=== PATIENT | male | born 1950 | race Caucasian/White ===

== ENCOUNTER → 2018-02-22 08:29 | Outpatient (CLI) | payer OTHER, SELFPAY ==
[2018-02-22 10:49] LABS: Estimated Glomerular Filt Rate > 60.0 mL/min (>60)
== END ==
PROVIDERS: Family Provider Family Medicine; PCP Family Medicine; Visit Provider Emergency Medicine Emergency Medical Services
DX: G95.0 Syringomyelia and syringobulbia (principal)
CPT/HCPCS: 36415; 82565

== ENCOUNTER → 2018-02-25 08:50 | Outpatient (CLI) | payer OTHER, SELFPAY ==
--- NOTE | 2018-02-25 | DI.MRI.S_ITS ---
PROCEDURE: MR THORACIC SPINE WO/W CON INDICATIONS: History of cervicothoracic syrinx. Left neck,shoulder and arm pain TECHNIQUE: Noncontrast sagittal T1 spin echo and T2 fast spin echo, sagittal STIR, axial T1 and T2 fast spin echo through the thoracic spine. After the administration of contrast, axial and sagittal T1 spin echo with fat saturation through the thoracic spine. COMPARISON: [facility], MR, MR CERVICAL SPINE WO/W CON, 02/25/2018, 9:06. [facility], MR, T-SPINE W&WO CONTRAST, 10/27/2017, 9:31. FINDINGS: Image quality: Diagnostic, with note made of motion artifact. Alignment and curvature: There is normal bony alignment. Marrow: Marrow is of normal overall signal. No acute vertebral body compression fractures. End plate edema is seen anteriorly at T7-T8 and at T9-T10, as before. Spinal cord: Visualized spinal cord is of normal signal and size. There is again seen prominence of the central canal within the superior cervical spine from approximately C6 through T1-T2. No abnormal enhancement is seen to suggest a mass as the cause of the syrinx. Paraspinous soft tissues: No paravertebral masses or abnormal enhancement. Miscellaneous: At C7-T1, there is a central/left disc protrusion, as on series 14 image 62, with mild to moderate central canal narrowing and minimal mass effect upon the ventral spinal cord. At T6-T7, there is a central/left disc protrusion, as on series 14 image 36, with mild central canal narrowing and mild mass effect upon the ventral spinal cord. At T9-T10, there is mild disc bulge seen, with minimal central canal narrowing. At T10-T11, there is generalized disc bulge seen, with minimal central canal narrowing present. IMPRESSION: No abnormal enhancement can be seen to suggest a mass of the cause of the patient's cervicothoracic syrinx. Age-appropriate thoracic spine degenerative changes are noted. Dictated by: Armando Prado M.D. on 02/25/2018 at 10:23 Approved by: Armando Prado M.D. on 02/25/2018 at 10:32
--- NOTE | 2018-02-25 | DI.MRI.S_ITS ---
PROCEDURE: MR CERVICAL SPINE WO/W CON INDICATIONS: History of cervicothoracic syrinx. Left sided neck, shoulder and arm pain TECHNIQUE: Noncontrast sagittal T1 spin echo and T2 fast spin echo, sagittal STIR, foraminal oblique sagittal T2 fast spin echo, axial gradient echo or T2 fast spin echo through the cervical spine. After the administration of contrast, axial and sagittal T1 spin echo with fat saturation through the cervical spine. COMPARISON: [facility], MR, C-SPINE W&WO CONTRAST, 10/27/2017, 9:07. FINDINGS: Image quality: Excellent. Alignment and curvature: There is straightening of normal cervical curvature. There is trace retrolisthesis of C5 on C6 and C6 on C7. Marrow: Marrow is normal in overall signal, without suspicious enhancement. Reactive endplate changes are present at C5-6. Spinal cord: Visualized spinal cord demonstrates abnormal hyperintense signal from C6-7 through T1. Appearance is unchanged. No cerebellar tonsillar herniation. No abnormal intramedullary enhancement. Paraspinous soft tissues: No paravertebral masses or suspicious enhancement. Discs: Moderate to severe desiccation is present throughout the cervical spine. C2-3: Mild disc bulge with minimal canal narrowing. No foraminal narrowing. C3-4: Mild disc bulge with moderate spinal stenosis. Moderate to severe bilateral foraminal narrowing with uncovertebral hypertrophy. C4-5: Mild disc bulge with mild to moderate spinal stenosis. Mild left foraminal narrowing with uncovertebral hypertrophy. C5-6: Mild disc bulge with moderate to severe spinal stenosis. Moderate to severe bilateral foraminal narrowing with uncovertebral hypertrophy. C6-7: Mild disc bulge with severe spinal stenosis. There is moderate left and mild right foraminal narrowing with uncovertebral hypertrophy. C7-T1: Mild disc bulge with left posterior paracentral protrusion, better visualized on today's exam as prior study of motion at this level. There is mild spinal stenosis as well as no gross foraminal narrowing. IMPRESSION: 1. Unchanged appearance of hyperintensity within the lower cervical/upper thoracic cord as above. No mass lesion or abnormal enhancement is identified. As previously noted, this could be secondary to old trauma, infection, inflammation or syrinx. 2. Multilevel degenerative changes, stable compared to prior exam. Dictated by: Milana Ascencio M.D. on 02/25/2018 at 13:28 Approved by: Milana Ascencio M.D. on 02/25/2018 at 14:04
== END ==
PROVIDERS: Family Provider Family Medicine; PCP Family Medicine; Visit Provider Emergency Medicine Emergency Medical Services
DX: M54.2 Cervicalgia (principal); M25.512 Pain in left shoulder; M79.602 Pain in left arm
CPT/HCPCS: 72156; 72157; A9579

== ENCOUNTER 2019-09-20 21:33 | Emergency (ER) | payer OTHER, SELFPAY ==
[2019-09-20 21:30] VITALS: BP 131/73; PULSE 75; RESP 18; TEMP 36.2; O2SAT 99
--- NOTE | 2019-09-20 21:43 | ED.SYNCOPE ---
HPI - Syncope General Chief Complaint: Syncope Stated Complaint: Near Syncope Time Seen by Provider: 09/20/19 21:43 Source: patient Mode of arrival: Ambulatory Limitations: no limitations History of Present Illness HPI narrative: The patient was sitting at his table at home playing cards with family members. He was suddenly feeling hot and flushed. He did not feel well, he got up and walked rate from the table. He had no chest pain, perhaps mild dysthymia. He had mild nausea but no emesis. His last meal was 5:00 p.m.. He does not drink alcohol. He has no cardiac or pulmonary disease. He came back inside and laid down on the floor, he was dizzy. There was no LOC. He does not feel like he was going to pass out. Someone at the home called 911. Symptoms resolved after 15 minutes. He has no prior history of similar episodes. He has no recent illness. He feels back to normal upon arrival here in the ER. The patient denies confusion. Family members confirm that there was no obvious confusion. He had no focal weakness. Related Data Home Medications Medication Instructions Recorded Confirmed ROSUVASTATIN CALCIUM (Crestor) 20 mg PO Q DAY #0 11/20/09 BIOTIN/BORON/CA/CHLORIDE/CR/ 1 tab PO Q DAY #0 06/07/11 (#CENTRUM SILVER) Fluoxetine Hydrochloride (PROZAC) 10 mg PO TID #0 06/07/11 trazodone 50 mg PO HS #0 06/07/11 zolpidem 10 mg PO HS #0 06/07/11 Allergies Allergy/AdvReac Type Severity Reaction Status Date / Time GENERIC: NKDA - NO KNOWN Allergy Unknown Uncoded 11/25/17 12:55 DRUG ALLERGIES Review of Systems Review of Systems ROS Unobtainable: All systems reviewed & are unremarkable except as noted in HPI and below Constitutional Constitutional: Reports system reviewed and no additional complaints, except as docu, Denies body ache(s), Denies chills, Denies fever(s), Denies headache(s) and Denies lethargy Eyes Eyes: Denies change in vision and Denies diplopia ENT Ears, Nose, Mouth, and Throat: Denies headache(s), Denies hoarseness and Denies neck pain Cardiovascular Cardiovascular: Denies chest pain, Denies lightheadedness, Denies palpitations, Denies dyspnea and Denies orthopnea Respiratory Respiratory: Denies cough, Denies dyspnea and Denies wheezing Gastrointestinal Gastrointestinal: Denies abdominal pain, Denies change in bowel habits, Reports nausea and Denies vomiting Musculoskeletal Musculoskeletal: Denies back pain and Denies neck pain Integumentary/Breasts Skin/Breast: Denies erythema and Denies rash Neurologic Neurologic: Denies confusion and Denies headache(s) Psychiatric Psychiatric: Denies anxiety, Denies confusion and Denies depression Endocrine Endocrine: Denies palpitations Allergic/Immunologic Allergic/Immunologic: Denies wheezing Patient History Medical History (Updated 09/21/19 @ 01:33 by Unruly Hunter MD) BPH (benign prostatic hyperplasia) (Acute) Depression (Acute) Surgical History (Updated 09/20/19 @ 21:56 by Unruly Hunter MD) No significant past surgical history (Acute) Exam Initial Vital Signs Initial Vital Signs: Vital Signs Temperature 97.2 F L 09/20/19 21:30 Pulse Rate 75 09/20/19 21:30 Respiratory Rate 18 09/20/19 21:30 Blood Pressure 131/73 09/20/19 21:30 Pulse Oximetry 99 09/20/19 21:30 Const General: cooperative and well developed Nutritional Appearance: well nourished [facility] Head: normocephalic and atraumatic Mouth: oral mucosae normal and moist mucous membranes Teeth and gingiva: dentition normal Throat: tonsils normal and uvula midline Eyes General: appearance normal, both eyes and all related structures Neck Neck: full ROM and No JVD Chest Chest: normal inspection of the chest Resp Effort & Inspection: normal respiratory effort and able to speak in complete sentences Auscultation: clear to auscultation bilaterally, no rales, no rhonchi and no wheezes Cardio Rate: regular rate Rhythm: regular rhythm Heart Sounds: S1 normal, S2 normal, no click, no gallops, no murmurs and no rubs Pulses: normal peripheral pulses GI Inspection: non-distended Palpation: soft, no hepatosplenomegaly and No tender Auscultation: normal bowel sounds Back/Spine/Pelvis Back: No CVA tenderness Cervical Spine: cervical ROM normal Thoracic/Lumbar Spine: thoracic and lumbar spine normal to inspection Skin General: no rashes or lesions noted and No petechiae Neuro General: alert, oriented x3, gait normal and no focal motor deficits Speech: speech normal Extrem General: full ROM, no pedal edema and no calf tenderness Course Course Course Narrative: The patient has been clinically stable since he arrived. He had been at home is referenced as a near syncopal episode. He did not obviously pass out. He has been observed here for 2+ hours without symptoms. He will be discharged home with recommended follow-up with his doctor. Additional cardiac evaluation may be useful. Orders Ordered: ED Orders 09/20/19 22:00 Complete Blood Count AUTO DIFF Stat Comprehensive Metabolic Panel Stat D Dimer Stat Lipase Stat Prothrombin Time INR Stat Troponin & CK Cardiac Panel Stat Discontinued Medications Sodium Chloride (Normal Saline 0.9%) 1,000 mls @ 150 mls/hr IV CONT LEE Last Infusion: 09/21/19 02:34 Dose: 0 mls/hr Documented by: Admin: 09/20/19 22:37 Dose: 150 mls/hr Documented by: ANA Vital Signs Vital signs: Vital Signs - 8 hr 09/21/19 00:42 09/21/19 02:10 Pulse Rate 14 L 70 Respiratory Rate 12 14 Blood Pressure 106/59 L Blood Pressure [Left Arm] 106/59 L Pulse Oximetry 96 97 MDM - Syncope Lab Data Result diagrams: 09/20/19 22:00 09/20/19 22:00 Labs: Lab Results 09/20/19 09/20/19 09/20/19 Range/Units 22:00 22:00 22:00 WBC 8.0 (4.5-11.0) X10^3/uL RBC 4.07 L (4.5-5.9) X10^6/uL Hgb 13.0 L (13.5-17.5) g/dL Hct 37.7 L (41-53) % MCV 92.6 (80-100) fL MCH 31.8 (26-34) PG MCHC 34.4 (30-36) % RDW 12.9 (11.6-14.8) % Plt Count 156 (150-400) X10^3/uL Neut % (Auto) 56.2 (50-75) % Lymph % (Auto) 34.0 (25-40) % [place] % (Auto) 5.3 (3-14) % Eos % (Auto) 4.0 (2-4) % Baso % (Auto) 0.5 (0-2) % Neut # (Auto) 4500 (8955-3022) /uL Lymph # (Auto) 2700 (1003-3358) /uL [place] # (Auto) 400 (0-900) /uL Eos # (Auto) 300 (0-450) /uL Baso # (Auto) 0 (0-100) /uL PT 12.0 (10.1-12.7) SECONDS INR 1.0 (0.9-1.3) D-Dimer < 200 (<230) ng/mL Sodium 139 (137-145) mmol/L Potassium 4.2 (3.4-5.1) mmol/L Chloride 104 (98-107) mmol/L Carbon Dioxide 32 (22-32) mmol/L BUN 25 H (9-20) mg/dL Creatinine 0.90 (0.66-1.25) mg/dL Estimated GFR > 60.0 (>60) mL/min BUN/Creatinine Ratio 27.8 H (6-22) Glucose 106 (80-110) mg/dL Calcium 8.7 (8.4-10.2) mg/dL Total Bilirubin 0.2 (0.2-1.3) mg/dL AST 26 (17-59) IU/L ALT 25 (<50) IU/L Alkaline Phosphatase 59 (38-126) U/L Total Creatine Kinase 74 (55-170) U/L CK-MB (CK-2) TNP CK-MB (CK-2) Rel Index TNP Troponin I < 0.012 (0.01-0.034) ng/mL Total Protein 6.3 (6.3-8.2) g/dL Albumin 3.7 (3.5-5.0) g/dL Globulin 2.6 (1.7-4.1) g/dL Albumin/Globulin Ratio 1.4 (1.0-2.8) Lipase 126 (23-300) U/L Imaging Data Chest x-ray: My Impression: No acute findings ECG Data Attestation: I personally reviewed and interpreted this ECG as follows: (Normal sinus rhythm rate 65 beats per minute. Borderline left axis deviation. No acute ST T wave changes. No ectopy.) Discharge Plan Departure Patient Disposition: Home Clinical Impression: Near syncope Discharge Date/Time: 09/21/19 02:11 Instructions: DI for Syncope in Adults (Fainting) Activity Restrictions/Additional Instructions: Continue with her current medications. Follow-up with her doctor. Your doctor may want to do cardiac monitoring or other testing. Return here as needed. Prescriptions: No Action ROSUVASTATIN CALCIUM (Crestor) 20 mg PO Q DAY Qty: 0 RF: 0 zolpidem 10 MG tablet 10 mg PO HS Qty: 0 RF: 0 trazodone 50 MG tablet 50 mg PO HS Qty: 0 RF: 0 BIOTIN/BORON/CA/CHLORIDE/CR/ (#CENTRUM SILVER) 1 tab PO Q DAY Qty: 0 RF: 0 Fluoxetine Hydrochloride (PROZAC) 10 mg PO TID Qty: 0 RF: 0 Referrals: Yrn Watkins MD [Primary Care Provider] -
--- NOTE | 2019-09-20 21:51 | DI.RAD.S_ITS ---
PROCEDURE: XR CHEST 1V INDICATIONS: Near syncope TECHNIQUE: One view of the chest was acquired. COMPARISON: None. FINDINGS: Surgical changes and devices: None. Lungs and pleura: Lungs are clear. No pleural effusions or pneumothorax. Mediastinum: Mediastinal contours appear normal. Heart size is normal. Bones and chest wall: No suspicious bony lesions. Overlying soft tissues appear unremarkable. IMPRESSION: No acute cardiopulmonary disease process. Dictated by: Fifi Tilley MD, PhD on 09/21/2019 at 8:15 Approved by: Fifi Tilley MD, PhD on 09/21/2019 at 8:15
[2019-09-20 22:13] LABS: Add Manual Diff / Slide Review NO; Basophils Absolute Auto 0 /uL (0-100); Basophils Percent Auto 0.5 % (0-2); Eosinophils Absolute Auto 300 /uL (0-450); Hematocrit 37.7 % (41-53); Lymphocytes Absolute Auto 2700 /uL (1100-4500); Mean Corpuscular HGB Conc 34.4 % (30-36); Mean Corpuscular Hemoglobin 31.8 PG (26-34); Mean Corpuscular Volume 92.6 fL (80-100); Monocytes Absolute Auto 400 /uL (0-900); Monocytes Percent Auto 5.3 % (3-14); Neutrophils Absolute Auto 4500 /uL (1500-7000); Neutrophils Percent Auto 56.2 % (50-75); Platelet Count 156 X10^3/uL (150-400); Red Blood Cell Count 4.07 X10^6/uL (4.5-5.9); Red Cell Distribution Width 12.9 % (11.6-14.8)
[2019-09-20 22:21] LABS: Alanine Aminotransferase 25 IU/L (<50); Albumin 3.7 g/dL (3.5-5.0); Albumin Globulin Ratio 1.4 (1.0-2.8); Alkaline Phosphatase 59 U/L (38-126); Aspartate Aminotransferase 26 IU/L (17-59); BUN Creatinine Ratio 27.8 (6-22); Bilirubin Total 0.2 mg/dL (0.2-1.3); Blood Urea Nitrogen 25 mg/dL (9-20); Calcium 8.7 mg/dL (8.4-10.2); Carbon Dioxide 32 mmol/L (22-32); Chloride 104 mmol/L (98-107); Creatine Kinase 74 U/L (55-170); D Dimer < 200 ng/mL (<230); Estimated Glomerular Filt Rate > 60.0 mL/min (>60); Globulin 2.6 g/dL (1.7-4.1); Glucose 106 mg/dL (80-110); HEMOLYSIS < 15 (0-50); Lipase 126 U/L (23-300); Potassium 4.2 mmol/L (3.4-5.1); Sodium 139 mmol/L (137-145); Total Protein 6.3 g/dL (6.3-8.2)
--- NOTE | 2019-09-20 22:22 | PC.NURSE ---
patient reports near syncope this evening when playing cards with friends. Patient reports feeling like he was going to pass out. Denies LOC, chest pain, sob, n/v/d
[2019-09-20 22:32] LABS: Troponin I < 0.012 ng/mL (0.01-0.034)
[2019-09-20] MEDS: SODIUM CHLORIDE 0.9% 1,000 ML 150 ML IV (22:37)
[2019-09-21 00:42] VITALS: BP 106/59; PULSE 14; RESP 12; O2SAT 96
[2019-09-21 02:10] VITALS: BP 106/59; PULSE 70; RESP 14; O2SAT 97
== END 2019-09-21 02:11 | disposition home or self-care (01) ==
PROVIDERS: Emergency Provider Emergency Medicine; Family Provider Family Medicine; PCP Emergency Medicine Emergency Medical Services
DX: R55 Syncope and collapse (principal); N40.0 Benign prostatic hyperplasia without lower urinary tract symptoms; F32.9 Major depressive disorder, single episode, unspecified
CPT/HCPCS: 36415; 71045; 80053; 82550; 83690; 84484; 85025; 85379; 85610; 93005; 96360; 96361; 99284

== ENCOUNTER → 2020-02-10 12:58 | Outpatient (CLI) | payer OTHER, SELFPAY ==
--- NOTE | 2020-02-10 13:04 | DI.MRI.S_ITS ---
PROCEDURE: MR CERVICAL SPINE WO/W CON INDICATIONS: PERSONAL HISTORY OF OTHER (HEALED) PHYSICAL INJURY TECHNIQUE: Noncontrast sagittal T1 spin echo and T2 fast spin echo, sagittal STIR, foraminal oblique sagittal T2 fast spin echo, axial gradient echo or T2 fast spin echo through the cervical spine. After the administration of contrast, axial and sagittal T1 spin echo with fat saturation through the cervical spine. COMPARISON: [facility], MR, C-SPINE W&WO CONTRAST, 10/27/2017, 9:07. [facility], MR, MR CERVICAL SPINE WO/W CON, 02/25/2018, 9:06. FINDINGS: Image quality: Excellent. Alignment and curvature: Straightening of the normal lordotic curvature. Trace anterolisthesis of C2 on C3.. Marrow: Multilevel degenerative endplate sclerosis and spurring. Diffuse facet arthropathy. Spinal cord: There is redemonstrated appearance of a T2 hyperintense presumed syrinx involving the cervical cord from the level of C6-T1. No associated enhancement is seen. Overall grossly stable appearance since 10/27/17. Paraspinous soft tissues: No paravertebral masses or suspicious enhancement. C2-3: Normal appearance. C3-4: No canal stenosis. Severe left foraminal narrowing with nerve root compression. Moderate right foraminal stenosis with nerve root compression. This has progressed since the prior study on both sides C4-5: No high-grade canal stenosis. Moderate right foraminal narrowing with nerve root compression. Mild to moderate left foraminal stenosis. Mild interval progression on the left C5-6: Moderate canal narrowing. Severe bilateral foraminal stenoses with nerve root compression. This is slightly progressed C6-7: Mild canal narrowing. Severe right foraminal stenosis with nerve root compression. Moderate left foraminal narrowing. No interval change. C7-T1: No canal stenosis or right foraminal stenosis. Moderate left foraminal narrowing with possible nerve root compression. This appears slightly progressed. IMPRESSION: Interval progression in diffuse, bilateral foraminal stenoses as detailed above. Straightening of the normal lordotic curvature Unchanged appearance of cord syrinx at the level of the cervical thoracic junction. No associated enhancement and overall stable appearance since 11/13/17 Dictated by: Wil Pacheco M.D. on 02/10/2020 at 14:36 Approved by: Wil Pacheco M.D. on 02/10/2020 at 14:46
== END ==
PROVIDERS: Family Provider Family Medicine; Visit Provider Neurological Surgery
DX: G60.3 Idiopathic progressive neuropathy (principal); M48.061 Spinal stenosis, lumbar region without neurogenic claudication
CPT/HCPCS: 72156

== ENCOUNTER → 2022-03-11 11:37 | Outpatient (CLI) | payer OTHER, SELFPAY ==
--- NOTE | 2022-03-11 | DI.MRI.S_ITS ---
PROCEDURE: MR CERVICAL SPINE WO CON INDICATIONS: Syringomyelia and syringobulbia TECHNIQUE: Noncontrast sagittal T1 spin echo and T2 fast spin echo, sagittal STIR, foraminal oblique sagittal T2 fast spin echo, and axial gradient echo or T2 fast spin echo through the cervical spine. COMPARISON: [facility], MR, MR CERVICAL SPINE WO/W CON, 02/10/2020, 13:16. [facility], MR, MR CERVICAL SPINE WO/W CON, 02/25/2018, 9:06. [facility], MR, C-SPINE W&WO CONTRAST, 10/27/2017, 9:07. [facility], MR, MR THORACIC SPINE WO CON, 03/11/2022, 12:05. FINDINGS: Image quality: This examination is limited by involuntary motion artifact. Alignment and Curvature: There is normal bony alignment. Bone Marrow: Marrow demonstrates normal overall signal. Spinal Cord: There is a cervical thoracic syrinx again seen, which is centered at the C7-T1 level and spans 2.5 cm cranial caudally, as on series 4, image 9. This syrinx appears similar to 2019. Paraspinous Soft Tissues: No paravertebral masses. Prevertebral soft tissues are normal in thickness. C2-C3: The disc height is well-preserved. Loss of disc signal is seen at this level. A mild degree of generalized disc osteophyte complex is seen. Moderate facet joint hypertrophy is seen. Mild bilateral neural foraminal narrowing is seen. Mild central canal narrowing is seen. When comparison is made with the prior images, these findings are similar. C3-C4: Mild loss of disc height is seen. Loss of disc signal is seen. Moderate disc osteophyte complex is seen, which is eccentric to the left. Moderate facet hypertrophy is seen, left worse than right. There is moderate to severe bilateral neural foraminal narrowing seen, right worse than left. Mild to moderate central canal narrowing is seen. When comparison is made with the prior images, these findings are similar. C4-C5: The disc height and disc signal are relatively well preserved. At least moderate disc osteophyte complex is seen, which is eccentric to the left side. Moderate facet hypertrophy seen, left worse than right. There is moderate to severe right-sided and at least moderate left-sided neural foraminal narrowing. Mild central canal narrowing is seen. When comparison is made with the prior images, these findings are similar. C5-C6: Moderate loss of disc height is seen. Loss of disc signal is seen. Reactive marrow endplate changes are seen which are hypointense on T1-weighted imaging and hyperintense on T2 weighted imaging, which is most consistent with edema (Modic type I changes). Moderate disc osteophyte complex is seen, which is eccentric to the right. There is a central disc osteophyte protrusion seen. At least moderate facet hypertrophy is seen at this level. There is moderate to severe bilateral neural foraminal narrowing seen. At least moderate central canal narrowing is seen. There is associated mass effect upon the ventral spinal cord. No significant change from the prior. C6-C7: Moderate loss of disc height is seen. Loss of disc signal is seen. Reactive marrow endplate changes are seen, which are hyperintense on T1-weighted and T2-weighted imaging and most consistent with fatty metaplasia (Modic type II changes). Moderate generalized disc osteophyte complex is seen. There is a central disc osteophyte protrusion seen. Mild to moderate facet hypertrophy is seen. There is moderate to severe bilateral neural foraminal narrowing seen, right worse than left. At least moderate central canal narrowing is seen, with associated mass effect upon the ventral spinal cord. These imaging findings are similar to the prior images. C7-T1: The disc height is well-preserved. Loss of disc signal is seen at this level. Moderate generalized disc osteophyte complex is seen. Mild to moderate facet hypertrophy can be seen at this level. There is moderate to severe left-sided and at least moderate right-sided neural foraminal narrowing. Minimal central canal narrowing is seen. When comparison is made with the prior images, these findings are similar. IMPRESSION: Multiple levels of cervical spine degenerative change are seen, which are worst at C5-C6 and C6-C7. Compared to 2020, the imaging findings appear similar. There is again seen a moderate syrinx centered at the C7-T1 level, which appears similar to 2020. Dictated by: Armando Prado M.D. on 03/11/2022 at 15:25 Approved by: Armando Prado M.D. on 03/11/2022 at 15:33
--- NOTE | 2022-03-11 | DI.MRI.S_ITS ---
PROCEDURE: MR THORACIC SPINE WO CON INDICATIONS: Syringomyelia and syringobulbia TECHNIQUE: Noncontrast sagittal T1 spine echo and T2 fast spin echo, sagittal STIR, and T2 fast spin echo through the thoracic spine. COMPARISON: [facility], , MR THORACIC SPINE WO/W CON, 02/25/2018, 9:06. FINDINGS: Image quality: Excellent. Alignment and Curvature: There is normal bony alignment. Bone Marrow: At T10-11, there is fluid replacement of the disc space with endplate erosions and significant edema in both the vertebral bodies. Posterior disc bulge also results in mild central stenosis. No evidence of epidural abscess. Anterior perivertebral mild soft tissue changes present. Otherwise, vertebral body height and alignment is maintained. Chronic multilevel degenerative endplate changes Spinal Cord: Cervical thoracic syringomyelia again noted extending to the level of T1, similar to the prior. At the level of T1-T2, there is a focal dorsal kinking of the cord with anterior displacement of the cord within the thecal sac, suggesting a dorsal thoracic arachnoid web. Paraspinous Soft Tissues: No paravertebral masses. IMPRESSION: 1. 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 No evidence of epidural abscess 2. 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 There is kinking of the cord just distal to a cervicothoracic syringomyelia, and a symptomatic arachnoid web could be a possible etiology. Approved by: Eliceo Boateng M.D. on 03/11/2022 at 16:27
== END ==
PROVIDERS: Family Provider Family Medicine; PCP Nurse Practitioner Family; Referring Provider Nurse Practitioner Family; Visit Provider Nurse Practitioner Family
DX: G95.0 Syringomyelia and syringobulbia (principal); M47.812 Spondylosis without myelopathy or radiculopathy, cervical region
CPT/HCPCS: 72141; 72146

== ENCOUNTER → 2022-09-23 08:37 | Outpatient (CLI) | payer OTHER, SELFPAY ==
[2022-09-23 09:41] LABS: Add Manual Diff / Slide Review NO; Basophils Absolute Auto 0 /uL (0-100); Basophils Percent Auto 0.6 % (0-2); Eosinophils Absolute Auto 300 /uL (0-450); Eosinophils Percent Auto 5.2 % (2-4); Hematocrit 37.1 % (41-53); Hemoglobin 12.5 g/dL (13.5-17.5); Lymphocytes Absolute Auto 2000 /uL (1100-4500); Lymphocytes Percent Auto 34.1 % (25-40); Mean Corpuscular HGB Conc 33.7 % (30-36); Mean Corpuscular Hemoglobin 31.2 PG (26-34); Mean Corpuscular Volume 92.5 fL (80-100); Monocytes Absolute Auto 400 /uL (0-900); Monocytes Percent Auto 6.7 % (3-14); Neutrophils Absolute Auto 3100 /uL (1500-7000); Neutrophils Percent Auto 53.4 % (50-75); Platelet Count 158 X10^3/uL (150-400); Red Blood Cell Count 4.01 X10^6/uL (4.5-5.9); White Blood Cell Count 5.9 X10^3/uL (4.5-11.0)
[2022-09-23 10:07] LABS: BUN Creatinine Ratio 23.4 (6-22); Blood Urea Nitrogen 22 mg/dL (9-20); Calcium 8.8 mg/dL (8.4-10.2); Carbon Dioxide 31 mmol/L (22-32); Chloride 102 mmol/L (98-107); Estimated Glomerular Filt Rate > 60 mL/min (>60); Glucose 101 mg/dL (80-110); HEMOLYSIS < 15 (0-50); Potassium 4.5 mmol/L (3.4-5.1); Sodium 139 mmol/L (137-145)
== END ==
PROVIDERS: Family Provider Family Medicine; PCP Nurse Practitioner Family; Referring Provider Orthopaedic Surgery; Visit Provider Orthopaedic Surgery
DX: Z01.818 Encounter for other preprocedural examination (principal); Z01.812 Encounter for preprocedural laboratory examination
CPT/HCPCS: 36415; 80048; 85025; 93005

== ENCOUNTER → 2022-10-01 11:43 | Outpatient (CLI) | payer OTHER, SELFPAY ==
--- NOTE | 2022-10-01 | DI.CT.S_ITS ---
PROCEDURE: CT UE RT WO CON INDICATIONS: Primary osteoarthritis, right shoulder TECHNIQUE: Noncontrast 1-1.5 mm thick sections acquired from the acromioclavicular joint to the inferior scapula, with coronal and sagittal reformatting. COMPARISON: [facility], CR, XR SHOULDER 2+ VIEWS RIGHT, 09/08/2022, 13:55. [facility], MR, MR SHOULDER RIGHT WITHOUT CONTRAST, 08/29/2022, 17:18. FINDINGS: Image quality: Excellent. Bones: Moderate acromioclavicular joint osteoarthritic changes are seen with joint space narrowing, subchondral sclerosis and marginal osteophyte formation depressing the musculotendinous junction of supraspinatus. Mild to moderate glenohumeral joint osteoarthritic changes are noted with joint space narrowing and subchondral sclerosis. No fracture or dislocation. No suspicious bony lesions. Visualized right upper ribs are intact. Soft tissues: There is no full-thickness rotator cuff tendon rupture. No significant rotator cuff muscle atrophy is seen on sagittal images. No abnormal soft tissue calcifications or intra-articular loose bodies. No right axillary lymphadenopathy by size criteria. Visualized right lung field is clear. IMPRESSION: 1. Moderate acromioclavicular joint osteoarthritis and [id number] glenohumeral joint osteoarthritis. No fracture or dislocation. No suspicious bony lesions. 2. No full-thickness rotator cuff tendon rupture. No significant rotator cuff muscle atrophy. 3. No abnormal soft tissue calcifications or intra-articular loose bodies. Dictated by: Ok Howell M.D. on 10/01/2022 at 14:19 Approved by: Ok Howell M.D. on 10/01/2022 at 14:26
== END ==
PROVIDERS: Family Provider Family Medicine; PCP Nurse Practitioner Family; Referring Provider Orthopaedic Surgery; Visit Provider Orthopaedic Surgery
DX: M19.011 Primary osteoarthritis, right shoulder (principal)
CPT/HCPCS: 73200

== ENCOUNTER 2022-11-14 06:23 | Inpatient (IN) | payer OTHER, SELFPAY ==
[2022-11-10 10:40] VITALS: BMI 29.7
[2022-11-14] VITALS (8 sets, daily range): BP systolic 103–127; BP diastolic 55–81; PULSE 63–77; RESP 14–22; TEMP 36.1–36.8; O2SAT 92–98; BMI 29.7
--- NOTE | 2022-11-14 | DI.RAD.S_ITS ---
PROCEDURE: XR SHOULDER RT MIN 2V INDICATIONS: PRE OP RIGHT SHOULDER TECHNIQUE: 1 views of the shoulder were acquired. COMPARISON: [facility], CR, XR CHEST 1 VIEW, 09/19/2022, 17:05. FINDINGS: Right shoulder arthroplasty changes are present. Hardware is intact without evidence hardware fracture or periprosthetic loosening.. IMPRESSION: Right shoulder arthroplasty. Dictated by: Milana Ascencio M.D. on 11/14/2022 at 11:05 Approved by: Milana Ascencio M.D. on 11/14/2022 at 11:05
[2022-11-14] MEDS: LACTATED RINGERS 1,000 ML 42 ML IV ×2 (07:17→08:44)
[2022-11-14 07:27] LABS: COVID19 -Nasal RAPID Negative (Negative)
--- NOTE | 2022-11-14 07:52 | SUR.PREOP ---
Block start time 0739 . Monitoring initiated and maintained throughout procedure. Oxygen and medications given per anesthesiologist instructions. Patient remained stable throughout procedure, no adverse reactions noted. Block end time 0745.
--- NOTE | 2022-11-14 07:55 | PM.PREOP ---
Pre-operative Note Interval Note History & Physical reviewed/Exam performed by Physician: Yes Changes to H&P: No
[2022-11-14] MEDS: CEFAZOLIN 2 GM/100 ML PREMIX 100 ML IV (08:10)
[2022-11-14] MEDS: TRANEXAMIC ACID 1,000 MG in SODIUM CHLORIDE 0.9% 100 ML 200 MG IV ×2 (08:15→09:49)
--- NOTE | 2022-11-14 08:33 | SUR.OPER ---
Beach chair with Theo/Perlita shoulder positioner. Lower body on padded OR bed. Head in foam padded head cradle, secured with straps. Non-operative arm secured at side padded by foam and pillows. Pillows under knees. Safety belt at thigh. Cloth tape over blanket over lower legs.
[2022-11-14] MEDS: BUPIVACAINE 0.25% (PF) VIAL 30 ML INJ (08:55)
--- NOTE | 2022-11-14 10:10 | P.OP_ITS ---
Operative Date/Time/Diagnoses Date of procedure: 11/14/22 Time of procedure: 10:10 Pre-op diagnosis: Right rotator cuff arthropathy Post-op diagnosis: same Procedure & Clinicians Procedure: Right reverse total shoulder arthroplasty Same procedure as scheduled: Yes Indications: Indications: This is a 72-year-old male who has rotator cuff arthropathy. Symptoms have been present for years, insidious onset. Patient has failed conservative therapy including injections, physical therapy, anti-inflammatories and activity modification. After extensive discussion in clinic, they wished to go forward with surgery. Risks and benefits were described including the risk of infection, bleeding, damage to internal structures including nerves. We also discussed the risk of failure of surgery and the need for revision surgery as well as the risk of anesthesia. The patient expressed understanding with these risks and wished to go forward with surgery. Surgeon: Lonny Jacobson Spinner Concrete Pipe: Kaylee Burns Anesthesia Type: General Operative Notes Findings: Findings: Osteoarthritis of the glenoid and humeral head as well as a defient rotator cuff as noted on preoperative imaging and under direct visualization Prosthetic devices, grafts, tissues, transplants, or devices: Tornier implants Base plate: Full wedge, (15?), 8 mm offset Glenosphere: 39 mm Stem: Perform 4 Poly: +3 concentric Estimated Blood Loss (mL): 50 Blood products transfused: none Procedure in detail: Operative note: Patient was seen in the preoperative holding unit. The correct right shoulder was identified and marked with my initials. Again we discussed the risks and benefits of surgery and they wished to go forward with surgery. The patient was brought back to the operating room and placed supine on the operating table. Smooth endotracheal intubation was performed by anesthesia. All prominences were padded and they were placed into the beach chair position. Intravenous antibiotics were given. The right shoulder was then prepped with the standard sterile preparation and draping. A time-out was then performed in my initials were again identified on the correct shoulder. 1 g of IV tranexamic acid was given. A standard deltopectoral incision was made. Skin flaps were made. The cephalic vein was identified and retracted laterally. This was protected throughout the remainder of the case. Sharp dissection was made along the deltoid, subacromial and subcoracoid space to release adhesions. The conjoined tendon was identified and the axillary nerve was palpated and continuous using the tug test. It was protected throughout the remainder of the case. A brown retractor was placed underneath the deltoid muscle and a darach retractor underneath the conjoint tendon. The anterior circumflex artery and associated veins on the lower border of the subscapularis were identified and tied off using 0-Vicryl. The biceps tendon was identified in the bicipital groove. This was released from its sheath, and taken from its origin on the glenoid and tied into the pectoralis tendon for a solid tenodesis. We then began a subscapularis peel. The subscapularis was tagged with an Ethibond suture. A 360 degree circumferential release of the subscapularis was performed with protection of the axillary nerve. The coracohumeral ligament was released at the base of the coracoid. The coracoacromial ligament was left intact. The shoulder was then dislocated. Osteophytes were removed using combination of rongeur and osteotome. The rotator cuff was noted to be insufficient. An intramedullary guide was used set at version of 30?. Using an oscillating saw a conservative humeral head cut was made. Impaction reamers were reamed up to a size 4 stem with a built-in angle 135?. A neck protector was placed. Attention was then turned to the glenoid. After retracting the humeral head posteriorly a circumferential release was performed of the capsule with protection of the axillary nerve. The labrum was then released starting at the biceps anchor and going around the rim a small amount of triceps was released from the inferior glenoid. A center guide pin was then placed using the guide, followed by Reamer. After adequate cartilage was removed the center drill hole was drilled and measured. The base plate was then implanted and screwed into place. The superior drill hole was drilled and filled in a nonlocking fashion, followed by the inferior and anterior holes in locking fashion, the posterior hole was also filled. A 39 glenosphere was then selected and screwed into place onto the base plate. Turning back to the humerus, the humeral head was delivered and trialed with a 3 mm concentric polyethylene. The arm was taken through range of motion and this was felt to be stable. The trial was then removed and a dilute Betadine wash was then performed with 1 L of sterile saline. Before placing the final implant, drill holes were made in the bicipital groove for the subscapularis repair, and sutures were passed through the drill holes. The final stem with high offset tray was then impacted into the humerus. The shoulder was then reduced and again brought through range of motion and was felt to be stable. The interval was then closed using #2 Ethibond. The subscapularis was then repaired using a modified racking hitch with nice loupes. The deltopectoral interval was then closed with #2 Ethibond. The skin was closed with 2-0 PDS and tri followed by Aquacel dressing. Patient was awoken from anesthesia and brought back to the postoperative recovery unit without issue. They were placed into a sling. Assisting participation: This operation could not have been safely performed (without compromising the technical results or length of the procedure) without the assistance of a skilled surgical nurse practitioner. The surgical nurse practitioner was medically necessary for proper positioning, retraction and manipulation of instruments, proper exposure, graft prep, and manipulation of tissue. Complications: none Post-operative Condition: stable Disposition: PACU Plan for aftercare: Postoperative instructions: Sling to remain on for 6 weeks. No external rotation past neutral for 6 weeks. Okay for him to come off her shower. Okay to shower over the Aquacel dressing. If any water gets underneath the dressing, remove the dressing. First postoperative visit in 2 weeks.
== END 2022-11-14 11:51 | disposition home or self-care (01) | DRG 483 ==
PROVIDERS: Admitting Provider Orthopaedic Surgery; Family Provider Family Medicine; PCP Nurse Practitioner Family; Referring Provider Orthopaedic Surgery; Visit Provider Orthopaedic Surgery
PROC: 0RRJ00Z Replacement of Right Shoulder Joint with Reverse Ball and Socket Synthetic Substitute, Open Approach (ICD-10-PCS; CPT 23472; principal; 2022-11-14 07:45)
DX: M19.011 Primary osteoarthritis, right shoulder (principal); F17.200 Nicotine dependence, unspecified, uncomplicated; Z20.822 Contact with and (suspected) exposure to COVID-19
CPT/HCPCS: 64415; 73030; 87635; C1776; C9803; J0690; J1100; J2250; J2405; J2704; J3010; J3490

== ENCOUNTER 2023-04-30 09:20 | Emergency (ER) | payer OTHER, SELFPAY ==
[2023-04-30 09:21] VITALS: BP 159/95; PULSE 70; RESP 15; TEMP 37.1; O2SAT 96; BMI 29.7
--- NOTE | 2023-04-30 09:29 | DI.RAD.S_ITS ---
PROCEDURE: XR SHOULDER RT MIN 2V INDICATIONS: fall possible shoulder injury TECHNIQUE: 3 views of the shoulder were acquired. COMPARISON: [facility], CR, XR SHOULDER RT 1V, 11/14/2022, 10:34. FINDINGS: Bones: Patient is status post reverse right shoulder arthroplasty. Shoulder alignment is unchanged from prior study. No gross hardware loosening or failure. No fractures or dislocations. No suspicious bony lesions. Visualized ribs appear intact. Soft tissues: No suspicious soft tissue calcifications. IMPRESSION: No acute right shoulder fracture or dislocation. Prior right shoulder reverse arthroplasty with anatomic shoulder alignment. No gross hardware loosening or failure. Dictated by: Ok Howell M.D. on 04/30/2023 at 9:58 Approved by: Ok Howell M.D. on 04/30/2023 at 9:59
--- NOTE | 2023-04-30 09:38 | ED_ITS ---
HPI - General Adult General Chief complaint: Extremity Injury, Upper Stated complaint: slipped & fell post op 6 months shoulder Time Seen by Provider: 04/30/23 09:37 Source: patient Mode of arrival: Ambulatory Limitations: no limitations History of Present Illness HPI narrative: 72-year-old male who 6 months ago underwent a right total shoulder replacement. He states yesterday he was walking in the store. He states he was looking 1 direction and did not realize that there was something on the floor in front of him and he slept. He states he did not land on his shoulder. But he is concerned that potentially something may be wrong given the recent surgery. Has been ambulatory since the event. He is not on blood thinners. Related Data Home Medications Medication Instructions Recorded Confirmed fluoxetine 10 mg tablet 30 mg PO QAM ##0 06/07/11 11/14/22 multivitamin 1 tab PO DAILY ##0 06/07/11 11/14/22 acetaminophen 500 mg tablet 1,000 mg PO BID 11/10/22 11/14/22 atorvastatin 80 mg tablet 80 mg PO DAILY 11/10/22 11/14/22 meloxicam 15 mg tablet 15 mg PO DAILY 11/10/22 11/14/22 oxycodone 5 mg tablet 5 mg PO BID 11/10/22 11/10/22 propranolol 10 mg tablet 10 mg PO TID Tremors 11/10/22 11/14/22 tadalafil 5 mg tablet 5 mg PO DAILY 11/10/22 11/14/22 tamsulosin 0.4 mg capsule 0.8 mg PO QAM 11/10/22 11/14/22 Previous Rx's Medication Instructions Recorded ondansetron HCl 4 mg tablet 4 mg PO Q8H PRN nausea and 11/14/22 vomiting #10 tabs oxycodone 10 mg tablet 10 mg PO Q6H PRN pain #20 tabs 11/14/22 Allergies Allergy/AdvReac Type Severity Reaction Status Date / Time Influenza Virus Vaccines AdvReac Severe Vascular Verified 04/30/23 09:26 reaction-skin turns bright red Review of Systems Constitutional Constitutional: Reports system reviewed and no additional complaints, except as documented Musculoskeletal Musculoskeletal: Reports system reviewed and no additional complaints, except as documented Integumentary/Breasts Skin/Breast: Reports system reviewed and no additional complaints, except as documented Hematologic/Lymphatic On Anticoagulants: No Patient History Medical History Acid reflux Anxiety BCC (basal cell carcinoma) BPH (benign prostatic hyperplasia) Depression Easy bruisability Eye injury (1971) Familial tremor Melanoma Neuropathy Osteoarthritis Precancerous lesion PTSD (post-traumatic stress disorder) Surgical History (Updated 11/10/22 @ 11:26 by Alicja Sanchez RN) History of surgery History of surgery (1972) Social History household members: spouse and family Smoking Status: Never smoker alcohol intake: former Smoking Status: Never smoker alcohol intake frequency: holidays/special occasions only Substance Use Type: marijuana Exam Initial Vital Signs Initial Vital Signs: Vital Signs Temperature 98.7 F 04/30/23 09:21 Pulse Rate 70 04/30/23 09:21 Respiratory Rate 15 04/30/23 09:21 Blood Pressure 159/95 H 04/30/23 09:21 Pulse Oximetry 96 04/30/23 09:21 Oxygen Delivery Method Room Air 04/30/23 09:21 HENMT Head: normal to inspection and normocephalic Back/Spine/Pelvis Cervical Spine: No cervical spinal tenderness Thoracic/Lumbar Spine: No paraspinal tenderness, No thoracic spinal tenderness and No lumbar spinal tenderness Skin General: no rashes or lesions noted Neuro General: patient alert, patient awake, patient oriented x3 and moves all extremities Speech: speech normal Extrem Other: Some limited range of motion to right shoulder but no discomfort. Course Orders Ordered: ED Orders 04/30/23 09:29 XR shoulder RT min 2V Stat Vital Signs Vital signs: Vital Signs - 8 hr 04/30/23 09:21 Temperature 98.7 F Pulse Rate 70 Respiratory Rate 15 Blood Pressure 159/95 H Pulse Oximetry 96 Oxygen Delivery Method Room Air Medical Decision Making Imaging Data Extremity x-ray #1: Radiologist's Impression: PROCEDURE:? XR SHOULDER RT MIN 2V ? INDICATIONS:? fall possible shoulder injury ? TECHNIQUE:? 3 views of the shoulder were acquired.? ? COMPARISON:? [facility], CR, XR SHOULDER RT 1V, 11/14/2022, 10:34. ? FINDINGS:? ? Bones:? Patient is status post reverse right shoulder arthroplasty.? Shoulder alignment is unchanged from prior study.? No gross hardware loosening or failure.? No fractures or dislocations.? No suspicious bony lesions.? Visualized ribs appear intact.? ? Soft tissues:? No suspicious soft tissue calcifications.? ? IMPRESSION:? No acute right shoulder fracture or dislocation.? Prior right shoulder reverse arthroplasty with anatomic shoulder alignment.? No gross hardware loosening or failure. [facility] Narrative Medical decision making narrative: This was clearly mechanical fall per his description of the event. The x-ray shows no fractures nor dislocation. The prosthetic appears well. Discuss this with the patient. No other injuries from the event. He was given return precautions and follow-up instructions. He expressed understanding and agreement. Discharge Plan Departure Patient Disposition: Home Clinical Impression: Acute shoulder pain Instructions: How To Perform RICE (Rest, Ice, Compress, Elevate), How to Prevent Falls Activity Restrictions/Additional Instructions: Continue to take all of your medications as directed. The x-ray show no fractures. Return to the emergency department for new or worsening symptoms. Prescriptions: No Action multivitamin Tablet 1 tab PO DAILY Qty: 0 fluoxetine 10 mg Tablet 30 mg PO QAM Qty: 0 atorvastatin 80 mg Tablet 80 mg PO DAILY meloxicam 15 mg Tablet 15 mg PO DAILY acetaminophen 500 mg Tablet 1,000 mg PO BID propranolol 10 mg Tablet 10 mg PO TID tamsulosin 0.4 mg Capsule 0.8 mg PO QAM oxycodone 5 mg Tablet 5 mg PO BID tadalafil 5 mg Tablet 5 mg PO DAILY ondansetron HCl 4 mg tablet 4 mg PO Q8H PRN (Reason: nausea and vomiting) Qty: 10 0RF oxycodone 10 mg tablet 10 mg PO Q6H PRN (Reason: pain) Qty: 20 0RF Referrals: Reji Diaz ARNP [Primary Care Provider] - Stand Alone Forms: Patient Portal/API
== END 2023-04-30 10:18 | disposition home or self-care (01) ==
PROVIDERS: Emergency Provider Emergency Medicine; Family Provider Family Medicine; PCP Nurse Practitioner Family
DX: S49.91XA Unspecified injury of right shoulder and upper arm, initial encounter (principal); Z79.899 Other long term (current) drug therapy
CPT/HCPCS: 73030; 99283

== ENCOUNTER 2023-09-07 10:06 | Emergency (ER) | payer OTHER, SELFPAY ==
[2023-09-07 10:11] VITALS: BP 148/88; PULSE 77; TEMP 36.4; O2SAT 98; BMI 29.7
--- NOTE | 2023-09-07 10:17 | DI.RAD.S_ITS ---
PROCEDURE: XR KNEE LT 3V INDICATIONS: knee pain TECHNIQUE: 3 views of the knee were acquired. COMPARISON: None. FINDINGS: Bones: No fractures or dislocations. No suspicious bony lesions. Soft tissues: No joint effusion. No suspicious soft tissue calcifications. IMPRESSION: No acute fracture. No osseous lesion. If symptoms and/or clinical suspicion for pathology persist, further assessment with repeat, or advanced imaging (e.g., CT, MRI, or bone scan) may be helpful for further assessment. Dictated by: Zabrina Keen M.D. on 09/07/2023 at 10:51 Approved by: Zabrina Keen M.D. on 09/07/2023 at 10:52
--- NOTE | 2023-09-07 11:19 | ED_ITS ---
HPI - Extremity Injury (Lower) <Jose Elias Bernard PA-C - Last Filed: 09/07/23 11:36> General Chief Complaint: Extremity Injury, Lower Stated Complaint: knee buckled t-1 cant walk Time Seen by Provider: 09/07/23 10:12 Source: patient Mode of arrival: Ambulatory History of Present Illness HPI Narrative: 73-year-old male with past medical history osteoarthritis, BPH, depression, benign tremors presents to the ED with 2 days of left-sided knee pain. Patient states that he had a mechanical injury of the left knee, felt a pop and his knee gave away when he stepped down from a step. Patient states he lowered himself to the ground, did not strike his head, denies loss of consciousness. Patient states that it has been painful to bear weight and walk since then. Patient is able to get around with crutches and his 's walker. Patient states that he took some meloxicam, Tylenol, oxycodone for pain this morning. Patient denies numbness, tingling, weakness, chest pain, shortness of breath. Related Data Home Medications Medication Instructions Recorded Confirmed fluoxetine 10 mg tablet 30 mg PO QAM ##0 06/07/11 11/14/22 multivitamin 1 tab PO DAILY ##0 06/07/11 11/14/22 acetaminophen 500 mg tablet 1,000 mg PO BID 11/10/22 11/14/22 atorvastatin 80 mg tablet 80 mg PO DAILY 11/10/22 11/14/22 meloxicam 15 mg tablet 15 mg PO DAILY 11/10/22 11/14/22 oxycodone 5 mg tablet 5 mg PO BID 11/10/22 11/10/22 propranolol 10 mg tablet 10 mg PO TID Tremors 11/10/22 11/14/22 tadalafil 5 mg tablet 5 mg PO DAILY 11/10/22 11/14/22 tamsulosin 0.4 mg capsule 0.8 mg PO QAM 11/10/22 11/14/22 Previous Rx's Medication Instructions Recorded ondansetron HCl 4 mg tablet 4 mg PO Q8H PRN nausea and 11/14/22 vomiting #10 tabs oxycodone 10 mg tablet 10 mg PO Q6H PRN pain #20 tabs 11/14/22 Allergies Allergy/AdvReac Type Severity Reaction Status Date / Time Influenza Virus Vaccines AdvReac Severe Vascular Verified 09/07/23 10:16 reaction-skin turns bright red Review of Systems <Jose Elias Bernard PA-C - Last Filed: 09/07/23 11:36> Constitutional Constitutional: Denies chills, Denies fatigue, Denies fever(s), Denies frequent falls, Denies lethargy and Denies weakness Eyes Eyes: Denies change in vision, Denies eye discharge, Denies irritation and Denies loss of vision ENT Ears, Nose, Mouth, and Throat: Denies change in voice, Denies dizziness, Denies neck pain, Denies sore throat and Denies throat swelling Cardiovascular Cardiovascular: Denies chest pain, Denies irregular heart rhythm, Denies lightheadedness, Denies palpitations, Denies dyspnea, Denies dyspnea on exertion and Denies orthopnea Respiratory Respiratory: Denies cough, Denies dyspnea, Denies dyspnea on exertion and Denies wheezing Gastrointestinal Gastrointestinal: Denies abdominal pain, Denies change in bowel habits, Denies diarrhea, Denies nausea and Denies vomiting Musculoskeletal Musculoskeletal: Denies neck pain and Denies numbness Comments: Left knee pain Integumentary/Breasts Skin/Breast: Denies pruritus, Denies erythema, Denies rash and Denies wounds Neurologic Neurologic: Denies behavioral changes, Denies confusion, Denies dizziness, Denies frequent falls, Denies loss of vision, Denies numbness and Denies weakness Psychiatric Psychiatric: Denies anxiety, Denies behavioral changes, Denies confusion, Denies depression, Denies homicidal ideation and Denies suicidal ideation Endocrine Endocrine: Denies fatigue, Denies flushing and Denies palpitations Hematologic/Lymphatic Hematologic/Lymphatic: Denies easy bruising Allergic/Immunologic Allergic/Immunologic: Denies urticaria, Denies throat swelling and Denies wheezing Patient History <Jose Elias Bernard PA-C - Last Filed: 09/07/23 11:36> Medical History PTSD (post-traumatic stress disorder) Anxiety Easy bruisability Osteoarthritis Precancerous lesion Melanoma BCC (basal cell carcinoma) Acid reflux Eye injury (1971) Familial tremor Neuropathy BPH (benign prostatic hyperplasia) Depression Surgical History History of surgery (1972) History of surgery Social History household members: spouse and family Smoking Status: Current some day smoker alcohol intake: former Smoking Status: Current some day smoker alcohol intake frequency: holidays/special occasions only Substance Use Type: marijuana Exam <Jose Elias Bernard PA-C - Last Filed: 09/07/23 11:36> Narrative Exam Narrative: Const General:?cooperative, healthy appearing and comfortable [facility] Head:?normal to inspection Ears:?hearing grossly normal bilaterally Nose:?external nose normal Face and sinus:?normal facial exam and sinuses nontender Mouth:?oral mucosae normal Throat:?posterior oropharynx normal Eyes General:?appearance normal, both eyes and all related structures Neck Neck:?normal visual inspection and no lymphadenopathy noted Resp Effort & Inspection:?normal respiratory effort Auscultation:?clear to auscultation bilaterally Cardio Rate:?regular rate Rhythm:?regular rhythm Musculoskeletal No tenderness to palpation of left knee. No swelling, erythema, bruising. There is full range of motion. Strength and sensation is intact. Patient is neurovascularly intact. Patient able to ambulate with crutches. Neuro General:?patient alert, patient awake and patient oriented x3 Initial Vital Signs Initial Vital Signs: Vital Signs Temperature 97.6 F 09/07/23 10:11 Pulse Rate 77 09/07/23 10:11 Blood Pressure 148/88 H 09/07/23 10:11 Pulse Oximetry 98 09/07/23 10:11 Oxygen Delivery Method Room Air 09/07/23 10:11 <Lisy Gonzalez MD - Last Filed: 09/07/23 11:57> Initial Vital Signs Initial Vital Signs: Vital Signs Temperature 97.6 F 09/07/23 10:11 Pulse Rate 77 09/07/23 10:11 Blood Pressure 148/88 H 09/07/23 10:11 Pulse Oximetry 98 09/07/23 10:11 Oxygen Delivery Method Room Air 09/07/23 10:11 Course <Jose Elias Bernard PA-C - Last Filed: 09/07/23 11:36> Orders Ordered: ED Orders 09/07/23 10:17 XR knee LT 3V Stat Vital Signs Vital signs: Vital Signs - 8 hr 09/07/23 10:11 09/07/23 11:39 Temperature 97.6 F Pulse Rate 77 60 Respiratory Rate 14 Blood Pressure 148/88 H 126/70 Pulse Oximetry 98 97 Oxygen Delivery Method Room Air Room Air <Lisy Gonzalez MD - Last Filed: 09/07/23 11:57> Orders Ordered: ED Orders 09/07/23 10:17 XR knee LT 3V Stat Vital Signs Vital signs: Vital Signs - 8 hr 09/07/23 10:11 09/07/23 11:39 Temperature 97.6 F Pulse Rate 77 60 Respiratory Rate 14 Blood Pressure 148/88 H 126/70 Pulse Oximetry 98 97 Oxygen Delivery Method Room Air Room Air MDM - Extremity Injury (Lower) <Jose Elias Bernard PA-C - Last Filed: 09/07/23 11:36> MDM Narrative Medical decision making narrative: 73-year-old male with past medical history osteoarthritis, BPH, depression, benign tremors presents to the ED with 2 days of left-sided knee pain. Concern for fracture/dislocation versus musculoskeletal sprain/strain. Obtained x-ray which shows no acute findings. Patient's symptoms most consistent with a musculoskeletal sprain/strain. Recommend supportive care with RICE, heat packs, Tylenol, meloxicam. Recommend follow-up with PCP. ED return precautions discussed with patient. Patient verbalized understanding. Medical records reviewed: Yes Discharge Plan Departure Patient Disposition: Home Clinical Impression: Knee pain Qualifiers: Chronicity: acute Laterality: left Qualified Code(s): M25.562 - Pain in left knee Instructions: DI for Knee Pain Activity Restrictions/Additional Instructions: You were evaluated in the ED today for left-sided knee pain. Your x-ray did not show any fractures or dislocations. It is likely that your knee pain is due to a musculoskeletal sprain/strain from it buckling yesterday. You may continue to rest it, elevate above heart level, take Tylenol and meloxicam. You may ice it for the 1st 24 hours after the injury, followed by heat packs. Please follow-up with your PCP in 2 days for further evaluation. Return to the ED if you have worsening symptoms, numbness, tingling, weakness. Prescriptions: No Action multivitamin Tablet 1 tab PO DAILY Qty: 0 fluoxetine 10 mg Tablet 30 mg PO QAM Qty: 0 atorvastatin 80 mg Tablet 80 mg PO DAILY meloxicam 15 mg Tablet 15 mg PO DAILY acetaminophen 500 mg Tablet 1,000 mg PO BID propranolol 10 mg Tablet 10 mg PO TID tamsulosin 0.4 mg Capsule 0.8 mg PO QAM oxycodone 5 mg Tablet 5 mg PO BID tadalafil 5 mg Tablet 5 mg PO DAILY ondansetron HCl 4 mg tablet 4 mg PO Q8H PRN (Reason: nausea and vomiting) Qty: 10 0RF oxycodone 10 mg tablet 10 mg PO Q6H PRN (Reason: pain) Qty: 20 0RF Referrals: Reji Diaz ARNP [Primary Care Provider] - Stand Alone Forms: Patient Portal/API ED Sign-out <Lisy Gonzalez MD - Last Filed: 09/07/23 11:57> Cosign ED Attending Cosignature Attestation: I did not see this patient. I was available all times for consultation.
[2023-09-07 11:39] VITALS: BP 126/70; PULSE 60; RESP 14; O2SAT 97
== END 2023-09-07 11:39 | disposition home or self-care (01) ==
PROVIDERS: Emergency Provider Student in an Organized Health Care Education/Training Program; Family Provider Family Medicine; PCP Nurse Practitioner Family
DX: M25.562 Pain in left knee (principal)
CPT/HCPCS: 73562; 99281; 99283

== ENCOUNTER → 2024-07-08 08:13 | Outpatient (CLI) | payer OTHER, SELFPAY ==
--- NOTE | 2024-07-08 08:15 | DI.MRI.S_ITS ---
PROCEDURE: MR KNEE LT WO CON INDICATIONS: LEFT KNEE PAIN TECHNIQUE: Noncontrast sagittal PD fast spin echo and T2 fast spin echo with fat saturation, sagittal 3-D FLASH with fat saturation; coronal T1 spin echo and PD fast spin echo with fat saturation, and axial PD fast spin echo with fat saturation through the knee. COMPARISON: [facility], CR, XR KNEE LT 3V, 09/07/2023, 10:20. FINDINGS: Image quality: Diagnostic Menisci: Medial: There is a complex significant tear involving the peripheral body of the meniscus, extending to the posterior horn, involving the meniscal capsular junction. There is a radial root tear with mild extrusion of the meniscal body. Lateral: Small horizontal tear may be degenerative. Cruciate ligaments: The PCL is intact. Very ill-defined appearance of the ACL fibers. Medial structures: MCL: There is mild edema deep to the MCL. No full-thickness defect Pes anserine tendons: Mild bursal edema Semimembranosus: Mild insertional tendinopathy Lateral structures: LCL: Intact Biceps femoris: Intact IT band: Intact Popliteus tendon: Intact Anterior structures: Extensor mechanism: There is thickening of the distal patellar tendon Fat pads: Moderate edema within Hoffa's fat pad. Medial retinaculum: Intact. Trochlea: Lateral patellar tilt. TT TG distance within normal limits Bone and joint: Bones: Mild focal edema in the lateral femoral condyle. Cartilage: High-grade cartilage loss is seen at the patella and trochlea, with full-thickness components and subchondral edema. Near full-thickness loss is also seen in the medial compartment and moderate chondromalacia in the lateral compartment. Multifocal osteophytes. Joint space: [id number] joint effusion and synovitis. Logan's cyst: Moderate to large Logan's cyst with septations Soft tissues: Unremarkable IMPRESSION: Complex medial meniscal tear involving the body and posterior horn, involving the meniscal capsular junction. Radial root tear with extrusion. Likely degenerative small horizontal tear of the lateral meniscus. Ill-defined appearance of the ACL likely from prior injury with scarring/remodeling versus significant mucoid degeneration. Edema is seen deep to the MCL, likely reactive or representing a sprain. Pes anserine bursitis. [id number] joint effusion is identified. Moderate to large Logan cyst. Moderate edema within Hoffa fat pad and lateral patellar tilt, sometimes seen with maltracking. Overall moderate degenerative changes of the knee, most significant in the patellofemoral compartment, with subchondral edema regions. Near full-thickness areas of cartilage loss also seen in the medial compartment. Mild contusion of the lateral femoral condyle without displaced fracture fragment. Dictated by: Rehan Olson M.D. on 07/08/2024 at 11:33 Approved by: Rehan Olson M.D. on 07/08/2024 at 11:40
== END ==
LOC: MRI 08:13
PROVIDERS: Family Provider Family Medicine; PCP Nurse Practitioner Family; Referring Provider Nurse Practitioner Family; Visit Provider Nurse Practitioner Family
DX: S83.232A Complex tear of medial meniscus, current injury, left knee, initial encounter (principal); S83.282A Other tear of lateral meniscus, current injury, left knee, initial encounter; S80.02XA Contusion of left knee, initial encounter; M25.462 Effusion, left knee; M71.22 Synovial cyst of popliteal space [Baker], left knee; M25.562 Pain in left knee
CPT/HCPCS: 73721

== ENCOUNTER → 2024-08-24 11:54 | Outpatient (CLI) | payer MEDICARE, SELFPAY ==
[2024-08-24 12:46] LABS: COVID-19 CEPHEID 4-PLEX PCR Negative (Negative); Influenza A - CEPHEID Flu A NEGATIVE (NEGATIVE); Influenza B - CEPHEID Flu B NEGATIVE (NEGATIVE); Respiratory Syncytial Virus POSITIVE (Negative)
== END ==
PROVIDERS: Family Provider Family Medicine; PCP Nurse Practitioner Family; Visit Provider Student in an Organized Health Care Education/Training Program
DX: R05.1 Acute cough (principal)
CPT/HCPCS: 0241U

== ENCOUNTER → 2024-08-24 12:01 | Outpatient (CLI) | payer MEDICARE, SELFPAY ==
--- NOTE | 2024-08-24 12:03 | DI.RAD.S_ITS ---
PROCEDURE: XR CHEST 2V INDICATIONS: cough 10d; wheezing, no hx TECHNIQUE: 2 views of the chest were acquired. COMPARISON: [facility], CR, XR CHEST 1V, 09/20/2019, 22:11. FINDINGS: Surgical changes and devices: Right shoulder arthroplasty Lungs and pleura: Lungs are clear. No pleural effusions or pneumothorax. Mediastinum: Mediastinal contours are normal. Heart size is normal. Bones and chest wall: No suspicious bony abnormalities. Soft tissues appear unremarkable. IMPRESSION: No acute cardiopulmonary abnormality is seen. Dictated by: Charles Rose M.D. on 08/24/2024 at 13:15 Approved by: Charles Rose M.D. on 08/24/2024 at 13:15
== END ==
PROVIDERS: Family Provider Family Medicine; PCP Nurse Practitioner Family; Referring Provider Student in an Organized Health Care Education/Training Program; Visit Provider Student in an Organized Health Care Education/Training Program
DX: R05.1 Acute cough (principal); R06.2 Wheezing
CPT/HCPCS: 0241U; 71046